=== PATIENT | female | born 1985 | race Caucasian/White ===

== ENCOUNTER 2017-07-04 23:31 | Inpatient (IN) | payer BC ==
[~2017-07-04] VITALS: Ht 162.6 cm; Wt 84.0 kg
[2017-07-04] MEDS ORDERED: D5%-LACTATED RINGERS 1,000 ML IV SCH (23:36)
[2017-07-04] MEDS ORDERED: OXYTOCIN 30U/ 0.9% NaCL 500ML 500 ML IV ONE (23:36)
[2017-07-04] MEDS ORDERED: NEWBORN KIT ONE (23:37)
[2017-07-04] MEDS ORDERED: LIDOCAINE 1%, 20ML ONE (23:37)
[2017-07-04] MEDS ORDERED: MISOPROSTOL 200 MCG TABLET ONE (23:38)
[2017-07-04] MEDS ORDERED: OXYTOCIN 30U/ 0.9% NaCL 500ML 500 ML ONE (23:38)
[2017-07-04] MEDS ORDERED: FENTANYL PF 100 MCG/2ML ONE (23:42)
[2017-07-04] MEDS ORDERED: PLEASE ENTER HEIGHT AND WEIGHT MC SCH (23:45)
[2017-07-04] MEDS ORDERED: PLEASE ENTER ALLERGIES MC SCH ×2 (23:45)
[2017-07-04] MEDS: LACTATED RINGERS 1,000 ML IV SCH (23:46)
[2017-07-04 23:58] LABS: HEMOGLOBIN 10.2 g/dL (11.7-16.4); WHITE BLOOD COUNT 13.3 x10^3/uL (3.4-10)
[2017-07-05] MEDS ORDERED: FENTANYL PF 100 MCG/2ML IVPush PRN
[2017-07-05] MEDS ORDERED: CALCIUM CARBONATE 500 MG TAB.CHEW PO PRN
[2017-07-05] MEDS ORDERED: ALUMINUM/MAG/SIMETHICONE 30 ML UDC PO PRN
[2017-07-05] MEDS ORDERED: ONDANSETRON 2MG/ML, 2ML IVPush PRN
[2017-07-05] MEDS ORDERED: SODIUM CITRATE/CITRIC ACID 30 ML UDC PO PRN
[2017-07-05] MEDS ORDERED: FENTANYL PF 100 MCG/2ML IV PRN
[2017-07-05] MEDS ORDERED: METOCLOPRAMIDE 5 MG/ML, 2ML IVPush PRN
[2017-07-05] MEDS ORDERED: TERBUTALINE 1 MG/ML, 1ML IVPush PRN ×2
[2017-07-05] MEDS ORDERED: FENTANYL/BUPIV./NS/PF 250 ML EPIDCONT ONE (00:10)
[2017-07-05] MEDS: LACTATED RINGERS 1,000 ML IV SCH (00:19)
[2017-07-05] MEDS ORDERED: FENTANYL/BUPIV./NS/PF 250 ML EPIDCONT SCH (00:43)
[2017-07-05] MEDS ORDERED: LACTATED RINGERS 1,000 ML IV SCH (00:43)
[2017-07-05] MEDS ORDERED: LACTATED RINGERS 1,000 ML IVBOLUS PRN (01:00)
[2017-07-05] MEDS ORDERED: EPHEDRINE 50 MG/ML, 1ML IVPush PRN (01:00)
[2017-07-05] MEDS ORDERED: NALOXONE 0.4 MG/ML, 1ML IVPush PRN (01:00)
[2017-07-05] MEDS ORDERED: MISOPROSTOL 200 MCG TABLET PR PRN (01:30)
[2017-07-05] MEDS ORDERED: OXYcodone/APAP 5/325MG TABLET PO PRN (01:30)
[2017-07-05] MEDS ORDERED: ACETAMINOPHEN 325 MG TABLET PO PRN (01:30)
[2017-07-05] MEDS ORDERED: BISACODYL 10 MG SUPP PR PRN (01:30)
[2017-07-05] MEDS ORDERED: GLYCERIN ADULT SUPP PR PRN (01:30)
[2017-07-05] MEDS ORDERED: ONDANSETRON 2MG/ML, 2ML IV PRN (01:30)
[2017-07-05] MEDS: OXYTOCIN 30U/ 0.9% NaCL 500ML 500 ML IV SCH ×3 (01:42→21:19)
[2017-07-05] MEDS ORDERED: IBUPROFEN 600 MG TABLET ONE (02:11)
[2017-07-05] MEDS: IBUPROFEN 800 MG TABLET PO PRN ×3 (02:19→20:30)
[2017-07-05 03:30] VITALS: BP 122/75
[2017-07-05 07:15] VITALS: BP 118/75
[2017-07-05 08:36] LABS: HEMATOCRIT 31.5 % (34.6-47.8); HEMOGLOBIN 10.6 g/dL (11.7-16.4); WHITE BLOOD COUNT 18.6 x10^3/uL (3.4-10)
[2017-07-05] MEDS ORDERED: PRENATAL VIT/IRON/FA 1 EACH TABLET PO SCH (09:00)
[2017-07-05] MEDS: DOCUSATE 100 MG CAPSULE PO PRN ×2 (09:13→20:30)
[2017-07-05 12:05] VITALS: BP 114/70
[2017-07-05 15:43] VITALS: BP 114/71
[2017-07-05 20:30] VITALS: BP 114/66
[2017-07-06 00:15] VITALS: BP 119/75
[2017-07-06] MEDS: IBUPROFEN 800 MG TABLET PO PRN ×2 (05:56→12:42)
[2017-07-06] MEDS: OXYTOCIN 30U/ 0.9% NaCL 500ML 500 ML IV SCH (06:39)
[2017-07-06 07:35] VITALS: BP 126/73
[2017-07-06] MEDS ORDERED: IBUP-1222 PO (10:14)
[2017-07-06] MEDS ORDERED: OXYC-302 PO (10:15)
== END 2017-07-06 13:37 | disposition home or self-care (01) | DRG 775 ==
LOC: LDOP 23:31 → LDIP 23:36 → 2NW 07-05 03:12
PROVIDERS: ADMIT Obstetrics & Gynecology; ATTEND Obstetrics & Gynecology
PROC: 10E0XZZ Delivery of Products of Conception, External Approach (ICD-10-PCS; principal; 2017-07-05)
PROC: 0HQ9XZZ Repair Perineum Skin, External Approach (ICD-10-PCS; 2017-07-05)
PROC: 3E0S3CZ (ICD-10-PCS; 2017-07-05)
PROC: 00HU33Z Insertion of Infusion Device into Spinal Canal, Percutaneous Approach (ICD-10-PCS; 2017-07-05)
DX: O70.0 First degree perineal laceration during delivery (principal); Z37.0 Single live birth; Z3A.39 39 weeks gestation of pregnancy
CPT/HCPCS: 36415; 82803; 85025; 86850; 86900; J3010; J2590; J7120

== ENCOUNTER 2017-07-20 21:59 | Emergency (ER) | payer BC ==
[~2017-07-20] VITALS: Ht 162.6 cm; Wt 73.5 kg
[~2017-07-20 21:59] MED LIST: IBUP-1222 PO; OXYC-302 PO
[2017-07-21 00:26] LABS: HEMATOCRIT 42.2 % (34.6-47.8); HEMOGLOBIN 13.8 g/dL (11.7-16.4)
[2017-07-21 03:52] VITALS: BP 123/87
== END 2017-07-21 03:58 | disposition home or self-care (01) ==
LOC: ED 07-21 00:36
DX: O72.1 Other immediate postpartum hemorrhage (principal); N93.8 Other specified abnormal uterine and vaginal bleeding; F17.200 Nicotine dependence, unspecified, uncomplicated
CPT/HCPCS: 36415; 76830; 84702; 85025; 86901; 99285